=== PATIENT | male | born 1960 | race Caucasian/White ===

== ENCOUNTER 2023-03-27 09:15 | Outpatient (RCR) | payer BC, SELFPAY | END 2023-04-10 09:50 | disposition home or self-care (01) | LOC: ANHDMC 09:15 | PROVIDERS: PCP Physician Assistant Medical; Visit Provider Orthopaedic Surgery | DX: E11.9 Type 2 diabetes mellitus without complications (principal); Z71.89 Other specified counseling | CPT/HCPCS: G0108 ==